=== PATIENT | male | born 1985 | race Caucasian/White ===

== ENCOUNTER 2019-02-13 04:15 | Emergency (ER) | payer MEDICARE ==
[~2019-02-13 04:15] MED LIST: ANTIBIOTICS; CEPHALEXIN500 M1 PO; CLEOCIN HC150 MG/CAP PO; CLINDAMYCIN HC300 MG PO; EXCEDRIN TENSION HA PO; HYDROCODONE/APAP; LORTAB 5/500 501 TAB PO; MOTRIN800 MG PO; NAPROSYN500 MG PO; NO HOME MEDICATIONS; NORCO 325 MG-51 TAB PO; PEN-VEE K500 MG PO; PERCOCET 325 MG1 TA2 PO; PERCOCET 325 MG1 TAB PO; PROMETHAZINE12.5 M5 PO; SEPTRA DS 8001 TAB PO
[2019-02-13 05:09] LABS: BASO % 0.4 % (0.0-2.0); EOS # 0.1 (0.0-0.7); EOS % 0.8 % (0-4.0); GRAN # 3.9 (1.4-6.5); GRAN % 50.8 % (42.2-75.2); HEMATOCRIT 46.1 % (42.0-52.0); HEMOGLOBIN 15.7 g/dl (13.5-18.0); LYMPH # 2.9 (1.2-3.4); LYMPH % 38.8 % (20.0-51.0); MEAN CELL VOLUME 93 fl (80.0-100.0); MEAN CORPUSCULAR HEMOGLOBIN 32 pg (27.0-31.0); MEAN CORPUSCULAR HGB CONC 34 g/dl (33.0-37.0); MEAN PLATELET VOLUME 8.7 fl (7.4-10.4); MONO # 0.7 (0.1-0.6); MONO % 8.9 % (1.7-9.3); PLATELET COUNT 226 K/mm3 (130-400); RED BLOOD COUNT 4.94 M/mm3 (4.20-5.60); REDCELL DISTRIBUTION WIDTH-CV 12.9 % (11.5-14.5)
[2019-02-13 05:11] VITALS: BP 111/90; TEMP 97.8
[2019-02-13 05:21] LABS: ACETAMINOPHEN < 10 ug/mL (10-30); ALANINE AMINOTRANSFERASE 16 U/L (21-72); ALBUMIN 4.7 gm/dL (3.5-5.0); ALCOHOL(ethanol),MEDICAL 121 mg/dL; ALKALINE PHOSPHATASE 72 U/L (50-136); ANION GAP 13 mmol/L (7-16); AST,SGOT 34 U/L (15-37); BILIRUBIN,TOTAL 0.6 mg/dL (0.0-1.0); BLOOD UREA NITROGEN 14 mg/dL (9-20); CALCIUM 9.2 mg/dL (8.4-10.2); CARBON DIOXIDE 25 mmol/L (22-30); CHLORIDE 105 mmol/L (98-107); CREATININE, serum 0.93 (0.66-1.25); GLUCOSE 87 mg/dL (74-106); POTASSIUM 4.4 mmol/L (3.4-5.0); SALICYLATE < 1.0 mg/dL; SODIUM 143 mmol/L (137-145); TOTAL PROTEIN 8.2 gm/dL (6.4-8.2)
[2019-02-13 06:01] LABS: TRICYCLIC ANTIDEPRESS URINE NEGATIVE
[2019-02-13 09:21] VITALS: PULSE 84
== END 2019-02-13 10:50 | disposition home or self-care (01) ==
LOC: COL.ER 04:15
PROVIDERS: Emergency Medicine
DX: F32.9 Major depressive disorder, single episode, unspecified (principal); R45.851 Suicidal ideations; F12.90 Cannabis use, unspecified, uncomplicated; F17.210 Nicotine dependence, cigarettes, uncomplicated; F10.129 Alcohol abuse with intoxication, unspecified; Z23 Encounter for immunization; Z85.47 Personal history of malignant neoplasm of testis; Y90.6 Blood alcohol level of 120-199 mg/100 ml